=== PATIENT | male | born 1965 | race Caucasian/White ===

== ENCOUNTER 2022-12-27 10:48 | Day surgery (SDC) | payer OTHER ==
[~2022-12-27 10:48] MED LIST: Lactated Ringers 1,000 ML IV SCH
[2022-12-27] MEDS ORDERED: Lidocaine 2% 5 ML SDV ONE (11:57)
[2022-12-27] MEDS ORDERED: Propofol 200 MG/20 ML SDV ONE (11:57)
[2022-12-27] MEDS ORDERED: Lactated Ringers 1,000 ML IV SCH (12:30)
== END 2022-12-27 13:00 | disposition home or self-care (01) ==
LOC: MW.SDS 10:48
PROVIDERS: ATTEND Surgery
DX: K22.2 Esophageal obstruction (principal); T18.128A Food in esophagus causing other injury, initial encounter; K21.00 Gastro-esophageal reflux disease with esophagitis, without bleeding; F41.8 Other specified anxiety disorders; T85.598A Other mechanical complication of other gastrointestinal prosthetic devices, implants and grafts, initial encounter; E11.9 Type 2 diabetes mellitus without complications; F41.9 Anxiety disorder, unspecified; F32.A Depression, unspecified; E66.9 Obesity, unspecified; Z87.19 Personal history of other diseases of the digestive system; Z88.5 Allergy status to narcotic agent; Z79.899 Other long term (current) drug therapy; Z90.49 Acquired absence of other specified parts of digestive tract; Z68.34 Body mass index [BMI] 34.0-34.9, adult
CPT/HCPCS: 43200; J2704; J7120; 00731; J3490